=== PATIENT | male | born 1975 | race African-American/Black ===

== ENCOUNTER 2022-12-16 06:01 | Emergency (ER) | payer BC, SELFPAY ==
[2022-12-16 06:55] LABS: Bilirubin 1+ (Negative); Blood, Urine 50 (Negative); Clarity Clear (Clear); Glucose, Urine (Dipstick) Normal (Negative); Ketone, Urine 50 mg/dL (Negative); Leukocyte 100 (Negative); Nitrite Negative (Negative); Protein, Urine (Dipstick) 100 mg/dl (Neg-Trace); Specific Gravity, Urine 1.015 (1.005-1.030); Urobilinogen 12 mg/dL (Less than 2)
[2022-12-16 07:02] LABS: Bacteria/HPF Rare-Few HPF (None Seen)
[2022-12-16 07:03] LABS: Mucous/LPF 1+ LPF (<2+)
[2022-12-16 07:04] LABS: #Basophils 0.1 10x3/uL (0.0-0.2); #Monocytes 1.1 10x3/uL (0.0-1.1); #Neutrophils 8.1 10x3/uL (1.5-8.4); %Basophils 0.5 % (0.0-2.0); %Eosinophils 0.4 % (0.0-6.0); %Monocytes 10.2 % (0.0-10.0); %Neutrophils 78.3 % (40.0-75.0); Hemoglobin 12.8 g/dL (13.5-17.5); Mean Corpuscular HGB CONC 35.1 g/dL (32.0-36.0); Mean Corpuscular Hemoglobin 27.5 pg (27.0-33.0); Mean Corpuscular Volume 78.5 fl (81.2-95.1); Platelet Count 399 10x3/uL (150-450); RBC Distribution Width 15.5 % (11.5-14.5); Red Blood Cell (RBC) Count 4.65 10x6/uL (4.32-5.72); White Blood Cell (WBC) Count 10.3 10x3/uL (3.5-10.5)
[2022-12-16 07:16] LABS: ALT (SGPT) 14 U/L (8-55); AST (SGOT) 20 U/L (5-34); Albumin 4.1 g/dL (3.5-5.0); Alkaline Phosphatase 30 U/L (40-110); Anion Gap 20 mmol/L (10-20); BUN (Urea Nitrogen) 14 mg/dL (8.9-20.6); Bilirubin, Total 0.7 mg/dL (0.2-1.2); Calc. Creatinine Clearance 0 mL/min (70-130); Calcium 8.9 mg/dL (7.8-10.44); Carbon Dioxide 24 mmol/L (22-29); Chloride 103 mmol/L (98-107); Estimated GFR 67; Globulin 2.8 g/dL (2.4-3.5); Glucose 106 mg/dL (70-105); Protein, Total 6.9 g/dL (6.0-8.3); Sodium 142 mmol/L (136-145)
[2022-12-16] MEDS ORDERED: Ketorolac Tromethamine 30 MG/ML VIAL ONE (07:34)
[2022-12-16] MEDS ORDERED: Iopamidol 370 76% 100 ML VIAL ONE (09:06)
[2022-12-16 09:12] LABS: SARS-CoV-2 NAA Rapid Test Not Detected (NotDetected)
== END 2022-12-16 09:00 | disposition home or self-care (01) ==
LOC: CSHERS 06:01
DX: J18.9 Pneumonia, unspecified organism (principal); J90 Pleural effusion, not elsewhere classified; Z20.822 Contact with and (suspected) exposure to COVID-19
CPT/HCPCS: 71275; 74177; 80053; 81003; 81015; 84484; 85025; 93005; 96374; J1885; Q9967

== ENCOUNTER 2023-01-06 02:05 | Inpatient (IN) | payer BC, SELFPAY ==
[2023-01-06 02:39] LABS: #Monocytes 1.6 10x3/uL (0.0-1.1); #Neutrophils 12.9 10x3/uL (1.5-8.4); %Basophils 0.2 % (0.0-2.0); %Eosinophils 0.1 % (0.0-6.0); %Monocytes 9.7 % (0.0-10.0); %Neutrophils 78.1 % (40.0-75.0); Hemoglobin 13.6 g/dL (13.5-17.5); Mean Corpuscular HGB CONC 31.6 g/dL (32.0-36.0); Mean Corpuscular Hemoglobin 26.2 pg (27.0-33.0); Mean Corpuscular Volume 82.9 fl (81.2-95.1); Mean Platelet Volume 8.5 fl (7.4-10.4); Platelet Count 448 10x3/uL (150-450); RBC Distribution Width 18.7 % (11.5-14.5); Red Blood Cell (RBC) Count 5.19 10x6/uL (4.32-5.72); White Blood Cell (WBC) Count 16.5 10x3/uL (3.5-10.5)
[2023-01-06 02:55] LABS: ALT (SGPT) 17 U/L (8-55); AST (SGOT) 20 U/L (5-34); Albumin 3.9 g/dL (3.5-5.0); Alkaline Phosphatase 38 U/L (40-110); Anion Gap 18 mmol/L (10-20); BUN (Urea Nitrogen) 18 mg/dL (8.9-20.6); Bilirubin, Total 0.4 mg/dL (0.2-1.2); Calc. Creatinine Clearance 0 mL/min (70-130); Calcium 8.9 mg/dL (7.8-10.44); Carbon Dioxide 27 mmol/L (22-29); Chloride 103 mmol/L (98-107); Estimated GFR 62; Globulin 2.9 g/dL (2.4-3.5); Glucose 132 mg/dL (70-105); Potassium 4.6 mmol/L (3.5-5.1); Protein, Total 6.8 g/dL (6.0-8.3); Sodium 143 mmol/L (136-145)
[2023-01-06 04:06] LABS: SARS-CoV-2 NAA Rapid Test Not Detected (NotDetected)
[2023-01-06] MEDS ORDERED: Vancomycin 1 GM VIAL ONE (04:48)
[2023-01-06] MEDS ORDERED: Cefepime 2 GM VIAL ONE (04:48)
[2023-01-06] MEDS ORDERED: Ondansetron PF 4 MG/2 ML Vial IVP PRN (05:07)
[2023-01-06] MEDS ORDERED: Calcium Carbonate 500 MG ChewTAB PO PRN (05:07)
[2023-01-06] MEDS ORDERED: Guaifenesin DM 100-10/5 ML UDCUP PO PRN (05:07)
[2023-01-06] MEDS ORDERED: Acetaminophen 325 MG TAB PO PRN (05:07)
[2023-01-06] MEDS ORDERED: Senokot S 8.6-50 MG TAB PO PRN (05:07)
[2023-01-06] MEDS ORDERED: Lorazepam 2 MG/ML VIAL ONE (05:10)
[2023-01-06] MEDS ORDERED: Ipratropium/Albuterol 3 ML NEB NEB PRN (05:12)
[2023-01-06] MEDS ORDERED: Sodium Chloride 0.45% 1,000 ML IV SCH (05:15)
[2023-01-06 06:23] VITALS: BMI 36.8
[2023-01-06 07:24] LABS: Base Excess (BEa) 2.5 mEq/L (-2.0 to +3.0); CO2 Tension 46.8 mmHg (35.0-45.0); Calcium, Ionized (arterial) 1.11 mmol/L (1.12-1.30); Carboxyhemoglobin (COHb) 1.1 gm% (0.0-3.0); Hemoglobin (Hb) 13.9 g/dL (14.0-18.0); O2 Tension (PaO2), arterial 94.9 mmHg (80.0-100.0); Potassium - ABG Lab 4.7 mmol/L (3.70-5.30); Puncture Site RRA
[2023-01-06] MEDS ORDERED: Mometasone/Formoterol 200/5 60 PUFF INH SCH (07:45)
[2023-01-06] MEDS ORDERED: Piperacillin/Tazobactam 3.375 GM in Sodium Chloride 0.9% 100 ML IVPB SCH ×2 (08:00→12:00)
[2023-01-06] MEDS ORDERED: Thiamine 100 MG TAB PO SCH (09:00)
[2023-01-06] MEDS ORDERED: VANCOMYCIN 1.25 GM/250 ML BAG 1.25 GM in Premix Bag 1 BAG IVPB SCH ×2 (09:00→09:45)
[2023-01-06] MEDS ORDERED: Folic Acid 1 MG TAB PO SCH (09:00)
[2023-01-06] MEDS ORDERED: Famotidine/PF 20 mg/2ml Vial SLOW IVP SCH (09:00)
[2023-01-06] MEDS ORDERED: FLU VACC QS2022-23(6MOS UP)/PF 60 MCG/0.5 ML SYRINGE IM ONE (10:30)
[2023-01-06 10:44] VITALS: BP 114/85; TEMP 99.6
[2023-01-06 12:01] LABS: Legionella Urinary Ag Negative (Negative); Strep pneumo Urine Ag NEGATIVE (NEGATIVE)
[2023-01-06] MEDS ORDERED: Vancomycin 1.5 GRAM/300 ML BAG 1.5 GM in Premix Bag 1 BAG IVPB SCH (21:00)
== END 2023-01-06 14:35 | disposition short-term general hospital (02) | DRG 871 ==
LOC: CSHERS 02:05 → CSHIMCU 06:17
PROVIDERS: ADMIT Student in an Organized Health Care Education/Training Program; ATTEND Internal Medicine
PROC: 5A09357 Assistance with Respiratory Ventilation, Less than 24 Consecutive Hours, Continuous Positive Airway Pressure (ICD-10-PCS; principal; 2023-01-06)
PROC: 4A133R1 Monitoring of Arterial Saturation, Peripheral, Percutaneous Approach (ICD-10-PCS; 2023-01-06)
DX: A41.9 Sepsis, unspecified organism (principal); J18.9 Pneumonia, unspecified organism; J96.01 Acute respiratory failure with hypoxia; N17.9 Acute kidney failure, unspecified; J90 Pleural effusion, not elsewhere classified; J45.909 Unspecified asthma, uncomplicated; E66.9 Obesity, unspecified; F10.10 Alcohol abuse, uncomplicated; Z20.822 Contact with and (suspected) exposure to COVID-19; R65.20 Severe sepsis without septic shock; R73.9 Hyperglycemia, unspecified; N28.9 Disorder of kidney and ureter, unspecified; Z68.36 Body mass index [BMI] 36.0-36.9, adult; Z83.6 Family history of other diseases of the respiratory system; Z78.9 Other specified health status
CPT/HCPCS: 36415; 36600; 71045; 71275; 80053; 82805; 83605; 83880; 84484; 85025; 87040; 87449; 87899; 93005; 94640; 94660; 94760; 96365; 96375; J0692; J2060; J2543; J3370; J3490; J7620; S0028; U0002

== ENCOUNTER 2024-10-02 19:38 | Emergency (ER) | payer BC ==
[2024-10-02 20:11] LABS: Bilirubin Neg (Negative); Blood, Urine 25 (Negative); Clarity Clear (Clear); Glucose, Urine (Dipstick) Normal (Negative); Ketone, Urine Negative (Negative); Leukocyte 25 (Negative); Nitrite Negative (Negative); Protein, Urine (Dipstick) 30 mg/dl (Neg-Trace); Specific Gravity, Urine 1.005 (1.005-1.030); Urobilinogen Normal mg/dL (Less than 2)
[2024-10-02] MEDS ORDERED: Ketorolac Tromethamine 30 MG (1 mL) VIAL ONE (20:11)
[2024-10-02 20:21] LABS: CAUTI Indications for Culture Pelvic or flank pain; RBC/HPF 0-3 HPF (0-3); WBC/HPF 0-3 HPF (0-3)
[2024-10-02 20:22] LABS: Bacteria/HPF Rare-Few HPF (None Seen); Squamous Epithelial 0-3 HPF (0-3)
[2024-10-02 20:23] LABS: Urine Culture Reflex No No
== END 2024-10-02 21:24 | disposition home or self-care (01) ==
LOC: CSHERS 19:38
DX: M54.50 Low back pain, unspecified (principal); I10 Essential (primary) hypertension; J45.909 Unspecified asthma, uncomplicated; F17.290 Nicotine dependence, other tobacco product, uncomplicated; Z79.51 Long term (current) use of inhaled steroids
CPT/HCPCS: 74176; 81001; 96372; J1885

== ENCOUNTER 2024-10-05 08:30 | Emergency (ER) | payer BC | END 2024-10-05 09:16 | disposition home or self-care (01) | LOC: CSHERS 08:30 | DX: M54.50 Low back pain, unspecified (principal); I10 Essential (primary) hypertension; J45.909 Unspecified asthma, uncomplicated; Z79.899 Other long term (current) drug therapy | CPT/HCPCS: 99283 ==